=== PATIENT | male | born 2000 | race Caucasian/White ===

== ENCOUNTER 2024-11-21 03:18 | Emergency (ER) | payer OTHER, SELFPAY ==
[2024-11-21 03:21] VITALS: BP 146/83; PULSE 100; TEMP 36.6; O2SAT 100; BMI 24.4
--- NOTE | 2024-11-21 03:33 | ED.DENTAL1 ---
HPI - Dental/Oral General Chief complaint: Dental/Oral Stated complaint: DENTAL PAIN Time Seen by Provider: 11/21/24 03:26 Source: patient Mode of arrival: walk-in Limitations: no limitations History of Present Illness HPI Narrative: This 23-year-old male presents for evaluation of pain in tooth #17 where he has a large hole/cavity. He states has been bothering him for a period of time but worse over the past several days. Tonight he could not sleep. He does not have any fever. He denies any chest pain or shortness of breath. He states he does have a dentist that he plans on contacting. Related Data Home Medications ?Medication ?Instructions ?Recorded ?Confirmed No Known Home Medications 11/21/24 11/21/24 Allergies Allergy/AdvReac Type Severity Reaction Status Date / Time No Known Drug Allergies Allergy Verified 11/21/24 03:25 Review of Systems ROS Status of ROS 10 or more systems reviewed and unremarkable except as noted in history and below PFSH PFSH Social History Little interest or pleasure in doing things: not at all Feeling down, depressed, or hopeless: not at all Exam Narrative Exam Narrative: Vital signs and Nursing Notes reviewed: Patient is afebrile, pulse is on the high side at 100, blood pressure is elevated 146/83, he is not hypoxic with pulse ox of 100% on room air General: Awake, alert, oriented, anxious, no acute respiratory distress, lying comfortably on the stretcher-speech is clear HEENT: Normocephalic atraumatic, mucous membranes are moist and pink, eyes are clear, normal conjunctiva, vision is grossly intact, there is a large hole/cavity at the medial aspect of tooth #17. There is no adjacent facial swelling or tenderness in the jaw. There is no gingival erythema or other notable abnormality. There is no sign of necrotizing gingivitis. There is no swelling of the tongue, uvula or pharyngeal soft tissues, speech is clear Neck: Supple, no meningeal signs, no anterior or posterior cervical lymphadenopathy Chest: Lungs are clear to auscultation with good air entry, there is no wheezing rhonchi or rales appreciated no accessory muscle use, patient is speaking in complete sentences-no chest wall tenderness to palpation CVS: Regular rate and rhythm S1-S2, no murmurs rubs or gallops, pulses are brisk and equal bilaterally Extremities: Moving all extremities Skin: Normal in appearance without rash,pallor, petechiae or purpura Neuro: No focal deficits Constitutional Vital Signs, click to edit/add: Last Vital Signs Temp 97.8 F 11/21/24 03:21 Pulse 100 H 11/21/24 03:21 Resp 18 11/21/24 03:21 BP 146/83 H 11/21/24 03:21 Pulse Ox 100 11/21/24 03:21 Course Vital Signs Vital signs: Vital Signs Temperature 97.8 F 11/21/24 03:21 Pulse Rate 100 H 11/21/24 03:21 Respiratory Rate 18 11/21/24 03:21 Blood Pressure 146/83 H 11/21/24 03:21 Pulse Oximetry 100 11/21/24 03:21 Temperature 97.8 F 11/21/24 03:21 Pulse Rate 100 H 11/21/24 03:21 Respiratory Rate 18 11/21/24 03:21 Blood Pressure 146/83 H 11/21/24 03:21 Pulse Oximetry 100 11/21/24 03:21 MDM - Dental/Oral MDM Narrative Medical decision making narrative: This 23-year-old male presents for evaluation of left posterior lower dental pain, he has a large hole in tooth #17. He states this has been present for a period of time but for the past several days he has had increasing pain in his area and cannot sleep at night. He does not have any sign of an acute abscess or gingivitis. He requested a dental block which was performed with lidocaine and bupivacaine. He was medicated in addition to that with dental analgesia and 500 mg of oral amoxicillin. The patient states he has a dentist that he can follow-up with although he is on Medicaid which makes things difficult. He is otherwise stable for discharge. He was discharged home with prescription for amoxicillin and ibuprofen. Discharge Plan Discharge Chief Complaint: Dental/Oral Clinical Impression: Dental caries, Toothache Patient Disposition: Home, Self-Care Time of Disposition Decision: 03:50 Condition: Good Prescriptions / Home Meds: No Action No Known Home Medications Print Language: Uzbek Instructions: Toothache (ED) Referrals: Physician,Non-Staff, [Primary Care Provider] - 1 week Procedures ED Procedure Instructions Procedures Procedures: Procedure note: Dental block; 2 cc of lidocaine and 2 cc of 0.5% bupivacaine were infiltrated into the buccal mucosa surrounding tooth #17. Patient tolerated procedure well and pain was relieved after the procedure.
[2024-11-21] MEDS: AMOXICILLIN 500 MG CAPSULE PO (03:47)
[2024-11-21] MEDS: BUPIVACAINE HCL 0.5% PF 50 MG/10 ML VIAL 5 ML INJ (03:48)
[2024-11-21] MEDS: LIDOCAINE HCL 2% PF 40 MG/2 ML VIAL 5 ML INJ (03:48)
[2024-11-21] MEDS: BENZOCAINE 30 ML, lidocaine HCL 15 ML MM (03:49)
== END 2024-11-21 04:21 | disposition home or self-care (01) ==
PROVIDERS: Emergency Provider Emergency Medicine
DX: K08.89 Other specified disorders of teeth and supporting structures (principal); K02.9 Dental caries, unspecified
CPT/HCPCS: 64450; 99284; J0665

== ENCOUNTER 2025-01-04 16:33 | Emergency (ER) | payer OTHER, SELFPAY ==
[2025-01-04 16:39] VITALS: BP 141/91; PULSE 83; TEMP 36.6; O2SAT 100; BMI 25.1
--- NOTE | 2025-01-04 16:54 | PC.NURSE ---
broken tooth for a long time
--- NOTE | 2025-01-04 17:00 | ED_ITS ---
HPI HPI - General Adult General Chief complaint: Dental/Oral Stated complaint: Dental Pain Time Seen by Provider: 01/04/25 16:38 Source: patient Mode of arrival: walk-in Limitations: no limitations History of Present Illness HPI narrative: 24-year-old male presents for toothache. He has had about 2 hours in symptoms left lower dentition posteriorly. Tried calling his dentist to make an appointment but was not successful. The pain is moderate and continuous. Related Data Previous Rx's ?Medication ?Instructions ?Recorded acetaminophen 300 mg-codeine 30 mg 1 tab PO Q6H PRN pa in 5 days #20 01/04/25 tablet tabs ibuprofen 800 mg tablet 800 mg PO Q8H PRN pain #20 t abs 01/04/25 penicillin V potassium 250 mg 250 mg PO QID 10 days #4 0 tabs 01/04/25 tablet Allergies Allergy/AdvReac Type Severity Reaction Status Date / Time No Known Drug Allergies Allergy Verified 01/04/25 16:43 Opioid HPI Opioid Management Most Recent Opioid Data: Last Pain Scale 2 11/21/24, 03:21 Review of Systems ROS Narrative A ten point review of systems is negative except as noted above. PFSH PFSH Social History Little interest or pleasure in doing things: not at all Feeling down, depressed, or hopeless: not at all Exam Narrative Exam Narrative: Nurses note and vital signs reviewed and patient is not hypoxic. General:The patient appears in no apparent distress.Patient is resting comfortably on cart. Skin:Warm, dry, no pallor noted.There is no rash noted. Head:Normocephalic, atraumatic Eye: Normal conjunctiva, no drainage Ears, Nose, Mouth, and Throat: oral mucosa is moist. Nares patent. No facial swelling or erythema. He has left third molar pain. There is no bleeding or pus present. No swelling to the floor of the mouth. The left mandibular third molar is angled medially. Cardiovascular:Regular Rate and Rhythm Respiratory:Patient is in no distress, no accessory muscle use, lungs are clear to auscultation, no wheezing, rales or rhonchi Back:non-tender GI: Soft and nontender Musculoskeletal: No joint swelling Neurological:A&O, normal speech Psychiatric:Cooperative Constitutional Vital Signs, click to edit/add: Last Vital Signs Temp 97.9 F 01/04/25 16:39 Pulse 83 01/04/25 16:39 Resp 16 01/04/25 16:39 BP 141/91 01/04/25 16:39 Pulse Ox 100 01/04/25 16:39 O2 Del Method Room Air 01/04/25 16:39 Course Vital Signs Vital signs: Vital Signs Temperature 97.9 F 01/04/25 16:39 Pulse Rate 83 01/04/25 16:39 Respiratory Rate 16 01/04/25 16:39 Blood Pressure 141/91 01/04/25 16:39 Pulse Oximetry 100 01/04/25 16:39 Oxygen Delivery Method Room Air 01/04/25 16:39 Temperature 97.9 F 01/04/25 16:39 Pulse Rate 83 01/04/25 16:39 Respiratory Rate 16 01/04/25 16:39 Blood Pressure 141/91 01/04/25 16:39 Pulse Oximetry 100 01/04/25 16:39 Oxygen Delivery Method Room Air 01/04/25 16:39 Medical Decision Making MDM Narrative Medical decision making narrative: He is given IM Toradol and prescribed Tylenol 3, ibuprofen, and penicillin. Follow-up with his dentist. Treatment diagnosis and follow-up were discussed with the patient. Differential Diagnosis Differential Diagnosis: Dental caries, toothache, dental abscess Discharge Plan Discharge Chief Complaint: Dental/Oral Clinical Impression: Dental caries Patient Disposition: Home, Self-Care Time of Disposition Decision: 16:58 Condition: Good Mode of Transportation: Private Vehicle Prescriptions / Home Meds: New acetaminophen-codeine 300-30 mg tablet 1 tab PO Q6H PRN (Reason: pain) 5 Days Qty: 20 0RF penicillin V potassium 250 mg tablet 250 mg PO QID 10 Days Qty: 40 0RF ibuprofen 800 mg tablet 800 mg PO Q8H PRN (Reason: pain) Qty: 20 0RF Print Language: Romansh Instructions: Toothache (ED) Referrals: Physician,Non-Staff, MD [Primary Care Provider] - 1 week
[2025-01-04] MEDS: KETOROLAC TROMETHAMINE 60 MG/2 ML VIAL IM (17:10)
== END 2025-01-04 17:14 | disposition home or self-care (01) ==
PROVIDERS: Emergency Provider Emergency Medicine
DX: K02.9 Dental caries, unspecified (principal)
CPT/HCPCS: 96372; 99284; J1885